=== PATIENT | female | born 1955 | race Caucasian/White ===

== ENCOUNTER 2019-07-19 05:23 | Day surgery (SDC) | payer MEDICARE, OTHER ==
[2019-07-12 16:09] LABS: BASOPHILS % (AUTO) 0.5 % (0-1); EOSINOPHILS # (AUTO) 0.1 X10'3 (0-0.9); EOSINOPHILS % (AUTO) 0.8 % (0-6); LYMPHOCYTES # (AUTO) 1.6 X10'3 (1.1-4.8); LYMPHOCYTES % (AUTO) 19.8 % (21-51); MEAN CORPUSCULAR HEMOGLOBIN 34.5 PG (27.0-31.0); MEAN CORPUSCULAR HGB CONC 34.5 g/dL (33.0-36.5); MEAN CORPUSCULAR VOLUME 99.8 FL (78-98); MEAN PLATELET VOLUME 7.8 FL (7.4-10.4); MONOCYTES # (AUTO) 0.7 X10'3 (0-0.9); NEUTROPHILS # (AUTO) 5.7 X10'3 (1.8-7.7); NEUTROPHILS % (AUTO) 69.9 % (42-75); PRE OP HEMATOCRIT 43.6 % (35.0-45.0); PRE OP PLATELET COUNT 224 X10'3 (140-440); RED BLOOD COUNT 4.37 X10'6 (4.20-5.60); RED CELL DISTRIBUTION WIDTH 13.3 % (11.5-14.5)
[2019-07-12 16:24] LABS: ALBUMIN 3.4 G/DL (3.4-5.0); ALKALINE PHOSPHATASE 90 IU/L (46-116); BLOOD UREA NITROGEN 4 MG/DL (7-18); BUN/CREATININE RATIO 5.2 (6.6-38.0); CALCIUM 7.6 MG/DL (8.5-10.1); CHLORIDE 100 MMOL/L (99-107); CREATININE 0.77 MG/DL (0.40-0.90); PRE OP ALT 13 U/L (30-65); PRE OP ANION GAP 8 (8-16); PRE OP AST 13 U/L (10-37); PRE OP BILIRUB, TOTAL 0.3 MG/DL (0.0-1.0); PRE OP GLUCOSE 118 MG/DL (70-104); PRE OP SODIUM 135 MMOL/L (135-145); TOTAL CARBON DIOXIDE 27.1 MMOL/L (24-32); TOTAL PROTEIN 6.9 G/DL (6.4-8.2); eGFR 76 ML/MIN
[2019-07-19] VITALS (8 sets, daily range): BP systolic 123–145; BP diastolic 47–74
[~2019-07-19] VITALS: Ht 157.5 cm; Wt 54.4 kg
[~2019-07-19 05:23] MED LIST: ANAS1TAB49 PO; ESCI20TA PO; FLUT1DIS7 INH; HYDR-4353 PO; LEVO88TA2 PO; LOSA25TA41 PO; NEBI10TA2 PO; SIMV20TA PO; TIZA2TAB5 PO; TRAZ-251 PO; ringers solution, lacted 1,000 ML IV SCH
[2019-07-19] MEDS ORDERED: famotidine 20mg tablet PO ONE (05:30)
[2019-07-19] MEDS ORDERED: DOCUMENT DATE & TIME OF BETA-BLOCKER PO ONE (05:30)
[2019-07-19] MEDS ORDERED: clindamycin-Cleocin 900mg/D5W 50 ML IV ONE (05:30)
[2019-07-19] MEDS ORDERED: LIDOcaine 1% (10mg/ml) 2ml vial ONE (05:52)
[2019-07-19] MEDS ORDERED: LIDOcaine 1% 30ml preserv. free vial ONE (06:38)
[2019-07-19] MEDS ORDERED: BUPIVAcaine/PF 2.5 mg/ml (0.25%) 30ml vial ONE (06:38)
[2019-07-19] MEDS ORDERED: rocuronium 10mg/ml inj IV ONE (07:24)
[2019-07-19] MEDS ORDERED: sevoflurane 250ml liquid IH ONE (07:24)
[2019-07-19] MEDS ORDERED: propofol inj 20 ML IV ONE (07:25)
[2019-07-19] MEDS ORDERED: midazolam 2 mg/2 ml injection ONE (07:25)
[2019-07-19] MEDS ORDERED: fentaNYL/PF 50MCG/1 ML 2ML syringe ONE (07:25)
[2019-07-19] MEDS ORDERED: ringers solution, lacted 1,000 ML IV SCH (07:58)
[2019-07-19] MEDS ORDERED: proCHLORperazine 10 MG/2 ml inj IV PRN (08:00)
[2019-07-19] MEDS ORDERED: morphine 4 MG/ML inj SYRINge IV PRN ×2 (08:00)
[2019-07-19] MEDS ORDERED: ondansetron/PF 4mg/2ml inj IV PRN (08:00)
[2019-07-19] MEDS ORDERED: meperidine/PF 25mg/ml syringe IV PRN ×3 (08:00)
--- NOTE | 2019-07-19 08:25 | NUR ---
Received from OR via BED , accompanied by Anesthesiologist DR PERSON and report given by Anesthesiolgist. PATIENT WAKING UP, DENIES PAIN, V/S WNL, NEUROVASCULAR CHECKS INTACT, 22G PIV LUE, SCD ON, LAP SIGHTS OF ABDOMEN DERMABONDED CDI.
[2019-07-19] MEDS ORDERED: traMADol 50MG tablet PO PRN (08:45)
--- NOTE | 2019-07-19 09:25 | NUR ---
PATIENT A&OX4, DENIES PAIN, V/S WNL, NEUROVASCULAR CHECKS INTACT, 22G PIV LUE D/C, SCD OFF, LAP SIGHTS OF ABDOMEN CDI. DERMABONDED . I HAVE REVIEWED D/C INSTRUCTIONS WITH PATIENT AND FAMILY HAVE VERBALIZED UNDERSTANDING.PATIENT WAS D/C HOME WITH ALL BELONGINGS AND FAMILY GAVE TRANSPORT HOME.
== END 2019-07-19 09:25 | disposition home or self-care (01) ==
LOC: PAS 05:23
PROVIDERS: ATTEND Surgery
DX: K40.90 Unilateral inguinal hernia, without obstruction or gangrene, not specified as recurrent (principal); I10 Essential (primary) hypertension; J44.9 Chronic obstructive pulmonary disease, unspecified; F17.210 Nicotine dependence, cigarettes, uncomplicated; F41.9 Anxiety disorder, unspecified; Z88.0 Allergy status to penicillin; Z88.5 Allergy status to narcotic agent; Z88.8 Allergy status to other drugs, medicaments and biological substances; Z91.09 Other allergy status, other than to drugs and biological substances; Z98.890 Other specified postprocedural states
CPT/HCPCS: 36415; 49505; 80053; 82948; 85025; 93005; C1781; J2001; J2250; J2704; J3010; J3490; A4215; A4618; A7000; J7120

== ENCOUNTER 2021-09-23 17:13 | Emergency (ER) | payer MEDICARE, OTHER ==
[~2021-09-23] VITALS: Ht 157.5 cm; Wt 44.8 kg
[~2021-09-23 17:13] MED LIST changes: +TIZA-189 PO; -TIZA2TAB5 PO; -ringers solution, lacted 1,000 ML IV SCH
[2021-09-23 17:20] VITALS: BP 185/85
== END 2021-09-23 20:17 | disposition left against medical advice (07) ==
LOC: ER 17:14
DX: M79.644 Pain in right finger(s) (principal); M79.645 Pain in left finger(s); Z53.21 Procedure and treatment not carried out due to patient leaving prior to being seen by health care provider

== ENCOUNTER 2021-09-25 14:54 | Emergency (ER) | payer MEDICARE, OTHER ==
[~2021-09-25] VITALS: Ht 157.5 cm; Wt 43.8 kg
[2021-09-25 16:03] VITALS: BP 158/83
== END 2021-09-26 02:15 | disposition left against medical advice (07) ==
LOC: ER 14:55
DX: M79.603 Pain in arm, unspecified (principal); Z53.21 Procedure and treatment not carried out due to patient leaving prior to being seen by health care provider

== ENCOUNTER 2024-02-01 08:00 | Day surgery (SDC) | payer MEDICARE, OTHER ==
[2024-01-28 11:30] LABS: BASOPHILS % (AUTO) 0.4 % (0-1); EOSINOPHILS % (AUTO) 0.5 % (0-6); LYMPHOCYTES % (AUTO) 14.5 % (21-51); MEAN CORPUSCULAR HEMOGLOBIN 34.4 PG (27.0-31.0); MEAN CORPUSCULAR HGB CONC 34.4 g/dL (33.0-36.5); MEAN CORPUSCULAR VOLUME 100.2 FL (78-98); MEAN PLATELET VOLUME 7.6 FL (7.4-10.4); MONOCYTES # (AUTO) 0.7 X10'3 (0-0.9); MONOCYTES % (AUTO) 10.4 % (2-12); NEUTROPHILS # (AUTO) 5.3 X10'3 (1.8-7.7); NEUTROPHILS % (AUTO) 74.2 % (42-75); PRE OP HEMATOCRIT 39.8 % (35.0-45.0); PRE OP HEMOGLOBIN 13.7 g/dL (12.0-16.0); PRE OP PLATELET COUNT 239 X10'3 (140-440); PRE OP WHITE BLOOD COUNT 7.1 10'3 (4.8-10.8); RED BLOOD COUNT 3.98 X10'6 (4.20-5.60); RED CELL DISTRIBUTION WIDTH 12.5 % (11.5-14.5)
[2024-01-28 11:44] LABS: ALBUMIN 3.4 G/DL (3.4-5.0); ALKALINE PHOSPHATASE 75 IU/L (46-116); BLOOD UREA NITROGEN 13 MG/DL (7-18); BUN/CREATININE RATIO 9.8 (10.0-20.0); CALCIUM 8.1 MG/DL (8.5-10.1); CHLORIDE 100 MMOL/L (99-107); CREATININE 1.33 MG/DL (0.40-0.90); PRE OP ALT 18 U/L (30-65); PRE OP ANION GAP 8 (8-16); PRE OP AST 19 U/L (10-37); PRE OP BILIRUB, TOTAL 0.3 MG/DL (0.0-1.0); PRE OP GLUCOSE 100 MG/DL (70-104); PRE OP POTASSIUM 4.1 MMOL/L (3.4-5.1); PRE OP SODIUM 134 MMOL/L (135-145); TOTAL CARBON DIOXIDE 25.8 MMOL/L (24-32); TOTAL PROTEIN 6.8 G/DL (6.4-8.2); eGFR 40 ML/MIN
[2024-02-01] VITALS (7 sets, daily range): BP systolic 111–149; BP diastolic 54–68; PULSE 63–69; RESP 12–16; TEMP 98.9; O2SAT 90–96
[~2024-02-01] VITALS: Ht 157.5 cm; Wt 45.6 kg
[2024-02-01] MEDS: DOCUMENT DATE & TIME OF BETA-BLOCKER PO ONE (05:30)
[2024-02-01] MEDS: CLINDAMYCIN 600mg IN NS 50ML 50 ML IV ONE (05:30)
[~2024-02-01 08:00] MED LIST changes: +ALEN70TA80 PO; +AMIT50TA15 PO; +AMLO5TAB16 PO; -ANAS1TAB49 PO; +ATRNS BOTHNARES; +BUSP15TA7 PO; +FLUT1BLS4 INH; -FLUT1DIS7 INH; +LEVO75TA7 PO; -LEVO88TA2 PO; +LIDOcaine 1% (10mg/ml) 2ml vial ONE; +NALO4SPR BOTHNARES; +NICO-687 TOP; +RIVA2.5T PO; +ROSU20TA2 PO; -SIMV20TA PO; -TRAZ-251 PO; +TRAZ-256 PO
[2024-02-01] MEDS ORDERED: LIDOcaine 1% 30ml preserv. free vial ONE (08:45)
[2024-02-01] MEDS: ringers solution, lacted 1,000 ML IV SCH (09:20)
[2024-02-01] MEDS: famotidine 20mg tablet PO ONE (09:20)
[2024-02-01] MEDS ORDERED: MIDAZolam 1 MG/ML 5ML VIAL ONE (09:54)
[2024-02-01] MEDS ORDERED: fentaNYL/PF 50MCG/1 ML 2ML syringe ONE (09:54)
[2024-02-01] MEDS ORDERED: acetaminophen 1,000mg/100ml IV 100 ML IV ONE (10:38)
[2024-02-01] MEDS: BUPIVAcaine/PF 2.5mg/ml (0.25%) 10ml vial ONE (11:47)
[2024-02-01] MEDS: LIDOcaine 2% (20mg/ml) 5ml vial ONE (11:48)
== END 2024-02-01 11:38 | disposition home or self-care (01) ==
LOC: PAS 08:00
PROVIDERS: ATTEND Orthopaedic Surgery Hand Surgery
DX: M18.12 Unilateral primary osteoarthritis of first carpometacarpal joint, left hand (principal); I10 Essential (primary) hypertension; E89.0 Postprocedural hypothyroidism; E78.5 Hyperlipidemia, unspecified; G47.33 Obstructive sleep apnea (adult) (pediatric); J44.9 Chronic obstructive pulmonary disease, unspecified; Z86.718 Personal history of other venous thrombosis and embolism; Z87.891 Personal history of nicotine dependence; Z85.3 Personal history of malignant neoplasm of breast; Z79.01 Long term (current) use of anticoagulants; Z79.02 Long term (current) use of antithrombotics/antiplatelets; Z79.2 Long term (current) use of antibiotics; Z79.890 Hormone replacement therapy; Z79.891 Long term (current) use of opiate analgesic; Z79.899 Other long term (current) drug therapy; Z90.11 Acquired absence of right breast and nipple; Z98.890 Other specified postprocedural states; Z88.0 Allergy status to penicillin; Z88.5 Allergy status to narcotic agent; Z88.8 Allergy status to other drugs, medicaments and biological substances; Z83.3 Family history of diabetes mellitus
CPT/HCPCS: 25447; 36415; 80053; 82948; 85025; C1713; J0131; J2250; J3010; J3490; J7030; J7120; Z7506; Z7508; Z7512; A4215; A4565; A4618; A6449; A7000